=== PATIENT | female | born 1995 | race Caucasian/White ===

== ENCOUNTER 2016-08-07 18:18 | Emergency (ER) | payer SELFPAY ==
[~2016-08-07 18:18] MED LIST: BENADRYL50 MG PO; DELTASONE50 MG PO; FAMOTIDINE20 M1 PO; NO HOME MEDS; OMNICEF300 MG PO; PREDNISONE10 MG PO
[2016-08-07 19:47] LABS: URINE BILIRUBIN NEGATIVE (NEG); URINE BLOOD NEGATIVE (NEG); URINE GLUCOSE (UA) NEGATIVE (NEG); URINE KETONE NEGATIVE (NEG); URINE LEUKOCYTE ESTERASE NEGATIVE (NEG); URINE NITRITE NEGATIVE (NEG); URINE PROTEIN NEGATIVE (NEG); URINE SPECIFIC GRAVITY 1.015 (1.003-1.030)
[2016-08-07 19:57] LABS: URINE APPEARANCE CLEAR; URINE COLOR YELLOW
[2016-08-07 19:58] LABS: URINE AMORPHOUS 2+; URINE RBC 0 /[HPF] (0-5); URINE WBC 0 /[HPF] (0-5)
[2016-08-08] MEDS ORDERED: PYRIDIUM200 M2 PO (07:37)
[2016-11-09] MEDS ORDERED: BACTRIM DS TAB1 EAC2 PO (18:42)
[2016-11-14] MEDS ORDERED: BACTRIM DS TAB1 EAC2 PO (00:16)
[2016-12-15] MEDS ORDERED: MACROBID 100 M100 M1 PO (18:13)
== END 2016-08-07 20:32 ==
LOC: EDMED 18:18
PROVIDERS: Physician Assistant
PROC: 4A0D7LZ Measurement of Urinary Volume, Via Natural or Artificial Opening (ICD-10-PCS; principal; 2016-08-07)
DX: R32 Unspecified urinary incontinence (principal); N32.89 Other specified disorders of bladder; F17.210 Nicotine dependence, cigarettes, uncomplicated

== ENCOUNTER 2016-08-21 22:20 | Emergency (ER) | payer SELFPAY ==
[~2016-08-21 22:20] MED LIST changes: +PYRIDIUM200 M2 PO
[2016-11-09] MEDS ORDERED: BACTRIM DS TAB1 EAC2 PO (18:42)
[2016-11-14] MEDS ORDERED: BACTRIM DS TAB1 EAC2 PO (00:16)
[2016-12-15] MEDS ORDERED: MACROBID 100 M100 M1 PO (18:13)
== END 2016-08-21 23:37 ==
LOC: EDMED 22:20
PROC: 2W3RXYZ Immobilization of Left Lower Leg using Other Device (ICD-10-PCS; principal; 2016-08-21)
DX: S63.502A Unspecified sprain of left wrist, initial encounter (principal); F17.201 Nicotine dependence, unspecified, in remission; X58.XXXA Exposure to other specified factors, initial encounter; Y93.89 Activity, other specified; Y92.019 Unspecified place in single-family (private) house as the place of occurrence of the external cause